=== PATIENT | male | born 1995 | race Caucasian/White ===

== ENCOUNTER → 2016-09-21 | Outpatient (CLI) | payer SELFPAY ==
--- NOTE | 2016-09-21 15:09 | RAD ---
Indication red and swollen left hemiscrotum for 2 weeks. Ultrasound was performed targeted to the scrotum. The right testicle measures 5.3 x 4.8 x 3 cm and appears unremarkable. No mass is seen. There is normal flow. There is a small epididymal cyst measuring approximately 3 mm. The left testicle measures 4 x 3.6 x 2.8 cm and also appears normal showing no evidence of mass. There is normal vascularity. The epididymis is enlarged and there is increased flow to the left epididymis. Findings are most compatible with inflammatory process such as epididymitis. There is a small left hydrocele. Some thickening of the skin over the left hemiscrotum is additionally noted. There is a small left varicocele. IMPRESSION: Enlarged left epididymis with increased flow to same. The findings are most compatible with an inflammatory process such as epididymitis. There is a small left hydrocele. Small right epididymal cyst.
== END | disposition home or self-care (01) ==
LOC: US 13:34
PROVIDERS: ATTEND Physician Assistant Medical
DX: N45.1 Epididymitis (principal); N43.3 Hydrocele, unspecified; N50.89 Other specified disorders of the male genital organs
CPT/HCPCS: 76870